=== PATIENT | male | born 1970 | race African-American/Black ===

== ENCOUNTER 2017-03-06 | Inpatient (IN) | payer OTHER ==
[~2017-03-06] VITALS: Ht 165.1 cm; Wt 71.7 kg
--- NOTE | ~2017-03-06 | HP ---
Unit #: [id number] #: [id number] Patient: FRAN SUMMERS [id number] [place] [address] [id number] MR#: [id number] NAME: FRAN SUMMERS. ROOM: [facility] Age: 47 Sex: M Admission Date: 03/06/2017 : 1970 Attending Physician: Chris Aviles M.D. Admitting Physician: Chris Aviles M.D. Primary Care Physician: Primary Care Physician No HISTORY AND PHYSICAL HISTORY OF PRESENT ILLNESS Fran is a 47 year old admitted to [address] [place] [address] because of his continued drug use. He shoots heroin. PAST MEDICAL HISTORY 1. Long history of opioid abuse to include IV heroin. 2. Obesity. PAST SURGICAL HISTORY Nothing reported. ALLERGIES No known drug allergies. SOCIAL HISTORY Smokes 1/2 pack per day. Denies alcohol. Admits to a long history of opioid abuse to include IV heroin. FAMILY HISTORY Medically noncontributory. REVIEW OF SYSTEMS CONSTITUTIONAL: No fever or chills. HEENT: Denies any sore throat, ear pain or runny nose. CARDIOVASCULAR: Denies chest pain, irregular heart rhythm or palpitations. CHEST: Denies shortness of breath or cough. No hemoptysis. GASTROINTESTINAL: Denies nausea, vomiting, diarrhea or chronic constipation. ENDOCRINE: Denies history of increased thirst or urination. No recent significant weight loss or gain. GENITOURINARY: Denies dysuria, frequency, or hematuria. SKIN: Denies any rashes. HEMATOLOGIC: Denies history of increased bleeding or bruising. MUSCULOSKELETAL: Denies any hot, swollen joints. No generalized muscle pain. NEUROLOGIC: Denies problems with vision or speech. No frequent, severe headaches. No numbness, tingling or weakness in any extremities. Denies loss of bladder or bowel control. CURRENT MEDICATIONS Detox protocol. PHYSICAL EXAMINATION Unit #: [id number] #: [id number] Patient: FRAN SUMMERS GENERAL: Alert, well-nourished, in no apparent distress. VITAL SIGNS: Blood pressure 115/75, heart rate 76, respirations 16, temperature 98.6. WEIGHT: 158. HEIGHT: 5 feet 5 inches. SKIN: Warm and dry without rash or lesion. HEENT: Normocephalic. TMs not viewed. Oral and nasal passages clear. Conjunctivae clear. PERRLA. EOMs intact. NECK: Supple without lymphadenopathy or thyromegaly. HEART: Regular rate and rhythm without murmur. LUNGS: Clear. ABDOMEN: Soft, nontender. : Not done. EXTREMITIES: No evidence of cyanosis, clubbing or edema. Moves all without focal deficit. NEUROLOGICAL: Grossly within normal limits. Cranial Nerves: II: Visual hi are intact. III, IV AND : Extraocular movements are intact. Pupils are equal, round and reactive to light. V: Facial sensation is grossly normal. VII: Facial movements and expression are normal. VIII: Auditory acuity grossly intact. IX, X: Uvula is midline. Phonation is normal. XI: Patient shrugs shoulders and turns head normally. XII: Tongue protrudes in the midline. Sensory and Motor Function: Sensory and motor sensation is grossly normal. Motor: moves all extremities well. Coordination: Gait is normal. Deep Tendon Reflexes: Intact. IMPRESSION Psychiatric admission. RECOMMENDATIONS PSYCHIATRIC: Per psychiatrist. MEDICAL: See no contraindication to participate in facility's activities. MEDICAL PROGNOSIS Good. MEDICAL CONDITION Stable. Dictated by... Haylee Camp P.A.-C. for [place] Miranda/sammie TD: 03/07/2017 16:56 JOB #: [id number] Unit #: [id number] #: [id number] Patient: FRAN SUMMERS HISTORY AND PHYSICAL Page 1 of 1 X Haylee Camp HISTORY AND PHYSICAL
--- NOTE | ~2017-03-06 | DS ---
Unit #: [id number] #: [id number] Patient: FRAN SUMMERS [id number] [place] [address] [id number] I MR#: [id number] NAME: FRAN SUMMERS. ROOM: [facility] Age: 47 Sex: M Admission Date: 03/06/2017 : 1970 Discharge Date: 03/09/2017 Attending Physician: Crhis Aviles M.D. Primary Care Physician: Primary Care Physician No DISCHARGE SUMMARY REASON FOR ADMISSION The patient is a 47-year-old male, admitted with a history of opioid dependence as well as abuse of cocaine and methamphetamine. HOSPITAL COURSE The patient was admitted to the [address] [place] [address] unit and placed on suicide precautions. A routine detoxification protocol for opioids was initiated. The patient's stay in the hospital was an uneventful one. His detox went smoothly and he participated actively within the therapeutic milieu. By 03/09/2017, the patient requested discharge and it was so ordered. FINAL DIAGNOSES Opioid use disorder; methamphetamine use disorder; cocaine use disorder. DISPOSITION ON DISCHARGE No psychotropic or other medications were ordered at the time of discharge. FOLLOWUP Followup will take place through the auspices of community mental health and chemical dependency treatment resources. PROGNOSIS The patient's prognosis is considered fair. Dictated by... Chris Aviles M.D. CB/anuel TD: 03/10/2017 02:39 JOB #: [id number] Unit #: [id number] #: [id number] Patient: FRAN SUMMERS DISCHARGE SUMMARY Page 1 of 1 X Chris Aviles MD X DISCHARGE SUMMARY
--- NOTE | ~2017-03-06 | PN ---
Unit #: [id number] #: [id number] Patient: FRAN SUMMERS [id number] [facility] [address] [place] [address] [id number] I MR#: [id number] NAME: FRAN SUMMERS. ROOM: P211 Age: 47 Sex: M Admission Date: 03/06/2017 : 1970 Attending Physician: Chris Aviles M.D. Admitting Physician: Chris Aviles M.D. Primary Care Physician: Primary Care Physician Eve MANSFIELD PROGRESS NOTES DATE 03/07/2017 DISCUSSION The patient is abed, sleeping soundly again and multiple attempts to arouse the patient are price unsuccessful. Staff reports no management issues but reports that he has been seclusive to room. Dictated by... Chris Aviles M.D. CB/sammie TD: 03/07/2017 12:02 JOB #: [id number] [facility] PROGRESS NOTES Page 1 of 1 X Chris Aviles MD X PROGRESS NOTE
--- NOTE | ~2017-03-06 | PA ---
Unit #: [id number] #: [id number] Patient: FRAN SUMMERS [id number] [place] [address] [id number] I MR#: [id number] NAME: FRAN SUMMERS. ROOM: [facility] Age: 47 Sex: M Admission Date: 03/06/2017 : 1970 Date of Assessment: 03/06/2017 Attending Physician: Chris Aviles M.D. Admitting Physician: Chris Aviles M.D. Primary Care Physician: Primary Care Physician No PSYCHIATRIC ASSESSMENT IDENTIFYING INFORMATION The patient is a 47-year-old male admitted with a history of polysubstance dependence. CHIEF COMPLAINT None given. INFORMANT(S) Chart. Patient cannot be aroused for interview. HISTORY OF PRESENT ILLNESS The patient is a 47-year-old male last treated at this facility in 2014. He is admitted with recurrent abuse of heroin, methamphetamine, and cocaine. The patient denies any suicidal or homicidal ideation. He does report positive symptoms of depression and anxiety related to his current state of unemployment and homelessness. The patient is originally from [place] but has been in [place] for some time. The patient reports no current suicidal or homicidal ideation at the time of admission. PAST PSYCHIATRIC HISTORY As noted previously, the patient was last admitted to this facility about 2 years ago. MEDICATIONS None. ALLERGIES None. FAMILY HISTORY Noncontributory. SOCIAL HISTORY The patient is originally from [place]. He is currently homeless and unemployed. He reports substance use as described previously. He is a high school graduate. MENTAL STATUS EXAMINATION Examination at this time reveals the patient to be soundly sleeping, loudly snoring male appearing his stated age. Multiple attempts to arouse the patient are unsuccessful. Unit #: [id number] #: [id number] Patient: FRAN SUMMERS ASSETS AND LIABILITIES The patient's assets are to be assessed. Liabilities: Lack of resources, homelessness. DIAGNOSTIC IMPRESSION 1. Opioid use disorder. 2. Methamphetamine use disorder. 3. Cocaine use disorder. TREATMENT PLAN The patient remains hospitalized for safety and stabilization. We will watch for any signs of opioid withdrawal, and a COWS detox protocol is in place. The patient will participate in appropriate order of milieu activities. ESTIMATED LENGTH OF STAY 3 to 4 days. Dictated by... [place] Mendez TD: 03/06/2017 14:51 JOB #: [id number] PSYCHIATRIC ASSESSMENT Page 1 of 1 X Chris Aviles MD PSYCHIATRIC ASSESSMENT
--- NOTE | ~2017-03-06 | PN ---
Unit #: [id number] #: [id number] Patient: FRAN SUMMERS [id number] [facility] [address] [place] [address] [id number] I MR#: [id number] NAME: FRAN SUMMERS. ROOM: [facility] Age: 47 Sex: M Admission Date: 03/06/2017 : 1970 Attending Physician: Chris Aviles M.D. Admitting Physician: Chris Aviles M.D. Primary Care Physician: Primary Care Physician Eve MANSFIELD PROGRESS NOTES DATE 03/08/2017 DISCUSSION The patient voices no new complains today. He is interested in residential chemical dependence treatment and all of his social workers see him regarding this. Dictated by... Chris Aviles M.D. CB/geovanna TD: 03/08/2017 22:29 JOB #: [id number] [facility] PROGRESS NOTES Page 1 of 1 X Chris Aviles MD X PROGRESS NOTE
[2017-03-06 09:56] LABS: BASOPHIL# 0.1 X10e3 (0-0.3); BASOPHIL% 0.7 % (0-2.5); EOSINOPHIL% 0.6 % (0.0-7.0); HEMATOCRIT 42.6 % (38.0-50.0); HEMOGLOBIN 14.6 gm/dL (13.0-16.0); LYMPHOCYTE# 1.9 X10e3 (1.0-3.5); LYMPHOCYTE% 23.4 % (17.0-45.0); MEAN CELL VOLUME 78.4 FL (83-96); MEAN CORPUSCULAR HEMOGLOBIN 26.8 PG (28-34); MEAN CORPUSCULAR HGB CONC 34.2 g/dL (30-36); MEAN PLATELET VOLUME 8.1 FL (6.5-11.5); MONOCYTE# 0.7 X10e3 (0-1.0); MONOCYTE% 8.2 % (3.0-12.0); NEUTROPHIL# 5.5 X10e3 (1.5-7.1); NEUTROPHIL% 67.1 % (40-75); PLATELET COUNT 307 X10e3 (140-420); RED BLOOD COUNT 5.43 X10e (3.90-5.60); RED CELL DISTRIBUTION WIDTH 15.7 % (11.0-15.5); WHITE BLOOD COUNT 8.2 X10e3 (4.0-10.5)
[2017-03-06 10:03] LABS: ALBUMIN SERUM 4.2 g/dL (3.5-5.0); BILIRUBIN,TOTAL 1.7 mg/dL (0.2-2.0); BUN/CREATININE RATIO 14.54; CALCIUM SERUM 9.6 mg/dL (8.4-10.2); CREATININE SERUM 1.1 mg/dL (0.6-1.4); GLOM FILT RATE Estimated 91.5 mL/min (>60); POTASSIUM 3.7 mmol/L (3.5-5.1); PROTEIN TOTAL SERUM 7.7 g/dL (6.0-8.3)
[2017-03-06 10:15] LABS: DIFF IND NO
[2017-03-07 11:04] LABS: URINE APPEARANCE CLEAR; URINE BILIRUBIN NEG (NEG); URINE BLOOD TRACE (NEG); URINE COLOR YELLOW; URINE GLUCOSE NEG (NEG); URINE KETONE NEG (NEG); URINE LEUKOCYTE ESTERASE 1+ (NEG); URINE NITRATE NEG (NEG); URINE PROTEIN NEG (NEG); URINE SPECIFIC GRAVITY 1.011 (1.003-1.035); URINE UROBILINOGEN 0.2 MG/DL (NEG)
[2017-03-07 11:07] LABS: URBCS1 AUWI 0-2 /[HPF] (0-2); URINE SQUAMOUS EPITHELIAL CELL NONE SEEN /[HPF]; UWBCS1 AUWI 25-50 (0-5)
[2017-03-07 11:34] LABS: AMPHETAMINE POS (NEG); BARBITURATES NEG (NEG); BENZODIAZEPINES NEG (NEG); COCAINE POS (NEG); MARIJUANA POS (NEG); OPIATES POS (NEG); TRICYCLIC ANTIDEPRESSANTS NEG (NEG); U METHADONE NEG (NEG)
== END 2017-03-09 16:00 | disposition home or self-care (01) | DRG 897 ==
LOC: P2S 02:43
PROVIDERS: Specialist
PROC: HZ2ZZZZ Detoxification Services for Substance Abuse Treatment (ICD-10-PCS; principal; 2017-03-06)
DX: F11.10 Opioid abuse, uncomplicated (principal); F14.10 Cocaine abuse, uncomplicated; F15.10 Other stimulant abuse, uncomplicated; F17.200 Nicotine dependence, unspecified, uncomplicated
CPT/HCPCS: 80053; 80307; 81003; 85025; 86592